=== PATIENT | female | born 1965 | race African-American/Black ===

== ENCOUNTER 2017-11-20 12:28 | Emergency (ER) | payer OTHER ==
[~2017-11-20] VITALS: Ht 172.7 cm; Wt 82.0 kg
[2017-11-20 12:29] VITALS: BP 142/74
[2017-11-20] MEDS ORDERED: ACETAMINOPHEN 325MG TABLET PO ONE (15:30)
== END 2017-11-20 15:45 | disposition left against medical advice (07) ==
LOC: ER 12:28
DX: S90.32XA Contusion of left foot, initial encounter (principal); S90.31XA Contusion of right foot, initial encounter; I10 Essential (primary) hypertension; Z85.528 Personal history of other malignant neoplasm of kidney; V03.10XA Pedestrian on foot injured in collision with car, pick-up truck or van in traffic accident, initial encounter; Y93.89 Activity, other specified; Y92.488 Other paved roadways as the place of occurrence of the external cause
CPT/HCPCS: 73562; 73590; 73630; 99284

== ENCOUNTER 2018-08-31 22:09 | Emergency (ER) | payer MEDICARE, MEDICAID ==
[~2018-08-31] VITALS: Ht 160 cm; Wt 61.0 kg
[2018-09-01 04:28] VITALS: BP 106/69
== END 2018-09-01 04:31 | disposition home or self-care (01) ==
LOC: ER 22:09
DX: R11.2 Nausea with vomiting, unspecified (principal); I10 Essential (primary) hypertension; Z85.528 Personal history of other malignant neoplasm of kidney; Z85.841 Personal history of malignant neoplasm of brain; Z98.890 Other specified postprocedural states
CPT/HCPCS: 99283

== ENCOUNTER 2018-09-06 18:32 | Inpatient (IN) | payer MEDICARE, MEDICAID ==
[~2018-09-06] VITALS: Ht 167.6 cm; Wt 72.6 kg
[2018-09-06] MEDS ORDERED: SODIUM CHLORIDE 0.9% 1,000 ML IV ONE ×2 (19:45→21:30)
[2018-09-06 21:24] LABS: INR 1.1; PROTHROMBIN TIME 10.9 sec (9.6-11.0)
[2018-09-06 21:50] LABS: BASOPHILS % 0.8 % (0.0-2.0); EOSINOPHILS % 1.6 % (0.0-5.0); LYMPHOCYTES % 15.5 % (20.0-50.0); MEAN CORPUSCULAR HEMOGLOBIN 26.1 pg (28.0-32.0); MEAN PLATELET VOLUME 7.2 fl (7.4-10.4); MONOCYTES % 5.2 % (2.0-8.0); NEUTROPHILS % 76.9 % (40.0-76.0); PLATELET 466 x1000/uL (130-400); RED BLOOD CELL COUNT 2.24 mill/uL (4.2-5.4); RED CELL DISTRIBUTION WIDTH 17.9 % (11.6-14.6)
[2018-09-06 21:51] LABS: HEMATOCRIT. 17.5 % (36.0-48.0); HEMOGLOBIN. 5.8 g/dL (12.0-16.0)
[2018-09-06 21:55] LABS: CHLORIDE 104 mEq/L (98-107)
[2018-09-06] MEDS ORDERED: HYDROCODONE/ACETAMINOPHEN 5/325MG TABLET PO ONE (22:15)
[2018-09-06] MEDS ORDERED: ONDANSETRON HCL 4MG/2ML INJ IV PRN (22:30)
[2018-09-06] MEDS ORDERED: ACETAMINOPHEN 325MG TABLET PO PRN (22:30)
[2018-09-06] MEDS ORDERED: CLONIDINE 0.1MG TABLET PO PRN (22:30)
[2018-09-06 22:50] LABS: CLARITY URINE CLOUDY (CLEAR); COLOR URINE YELLOW (YELLOW); KETONES URINE NEGATIVE (NEGATIVE); LEUKOCYTE ESTERASE URINE 3+ (NEGATIVE); NITRITE URINE NEGATIVE (NEGATIVE); OCCULT BLOOD URINE 3+ (NEGATIVE); PROTEIN URINE TRACE (NEGATIVE); SPECIFIC GRAVITY URINE 1.014 (1.005-1.030)
[2018-09-06] MEDS ORDERED: HYDROMORPHONE HCL/PF 2MG/ML CPJ IV PRN (23:45)
[2018-09-07] VITALS (7 sets, daily range): BP systolic 92–119; BP diastolic 47–74
[2018-09-07] MEDS: SODIUM CHLORIDE 0.9% 1,000 ML IV SCH ×2 (02:00→13:43)
[2018-09-07 07:30] LABS: BASOPHILS % 0.5 % (0.0-2.0); EOSINOPHILS % 1.5 % (0.0-5.0); HEMATOCRIT. 23.4 % (36.0-48.0); HEMOGLOBIN. 7.6 g/dL (12.0-16.0); LYMPHOCYTES % 17.5 % (20.0-50.0); MEAN CORPUSCULAR HEMOGLOBIN 26.5 pg (28.0-32.0); MEAN CORPUSCULAR VOLUME 81.4 fL (81.0-99.0); MEAN PLATELET VOLUME 7.5 fl (7.4-10.4); MONOCYTES % 6.9 % (2.0-8.0); NEUTROPHILS % 73.6 % (40.0-76.0); PLATELET 413 x1000/uL (130-400); RED BLOOD CELL COUNT 2.88 mill/uL (4.2-5.4); RED CELL DISTRIBUTION WIDTH 16.4 % (11.6-14.6)
[2018-09-07 07:48] LABS: CHLORIDE 110 mEq/L (98-107)
[2018-09-07] MEDS: INSULIN LISPRO 100 UNITS/ML SUBCUT SCH ×4 (07:50→21:00)
[2018-09-07] MEDS: BLOOD SUGAR DIAGNOSTIC STRIP TEST SCH ×4 (07:54→21:39)
[2018-09-07] MEDS: DEXTROSE 50% WATER 50ML SYRINGE IV PRN ×3 (07:54→21:39)
[2018-09-07] MEDS: FAMOTIDINE 20MG/2ML VIAL IV SCH ×2 (13:39→21:07)
[2018-09-07] MEDS: LEVOFLOXACIN 500MG PREMIX 100 ML IV SCH (13:40)
[2018-09-07] MEDS: HYDROCORTISONE ACETATE 25MG SUPP PR SCH ×2 (14:00→23:36)
[2018-09-07] MEDS ORDERED: NA PHOS,M-B/NA PHOS,DI-BA ENEMA 118ML PR SCH (14:30)
[2018-09-07] MEDS ORDERED: LORAZEPAM 2MG/ML CPJ IV NR (15:45)
[2018-09-07] MEDS ORDERED: PHENYTOIN SODIUM 1,000 MG in SODIUM CHLORIDE 0.9% 100 ML IV SCH (16:00)
[2018-09-07] MEDS ORDERED: NA PHOS,M-B/NA PHOS,DI-BA ENEMA 118ML PR NR (17:31)
[2018-09-07] MEDS ORDERED: MINERAL OIL ENEMA 133ML PR SCH (18:00)
[2018-09-07 19:43] LABS: HEMATOCRIT 27.5 % (36.0-48.0); HEMOGLOBIN 8.3 g/dL (12.0-16.0)
[2018-09-07] MEDS: LEVETIRACETAM 500 MG in SODIUM CHLORIDE 0.9% 100 ML IV SCH (21:07)
[2018-09-08] VITALS (18 sets, daily range): BP systolic 84–115; BP diastolic 30–89
[2018-09-08 06:28] LABS: BASOPHILS % 0.7 % (0.0-2.0); EOSINOPHILS % 1.5 % (0.0-5.0); HEMATOCRIT. 25.1 % (36.0-48.0); LYMPHOCYTES % 17.8 % (20.0-50.0); MEAN CORPUSCULAR HEMOGLOBIN 26.5 pg (28.0-32.0); MEAN CORPUSCULAR VOLUME 83.3 fL (81.0-99.0); MEAN PLATELET VOLUME 7.2 fl (7.4-10.4); MONOCYTES % 6.2 % (2.0-8.0); NEUTROPHILS % 73.8 % (40.0-76.0); PLATELET 436 x1000/uL (130-400); RED BLOOD CELL COUNT 3.01 mill/uL (4.2-5.4); RED CELL DISTRIBUTION WIDTH 16.9 % (11.6-14.6)
[2018-09-08 06:39] LABS: PROTHROMBIN TIME 10.7 sec (9.6-11.0)
[2018-09-08 06:43] LABS: CHLORIDE 112 mEq/L (98-107)
[2018-09-08] MEDS: INSULIN LISPRO 100 UNITS/ML SUBCUT SCH ×4 (07:02→21:00)
[2018-09-08] MEDS: BLOOD SUGAR DIAGNOSTIC STRIP TEST SCH ×4 (07:02→21:00)
[2018-09-08] MEDS: LORAZEPAM 2MG/ML CPJ IV PRN ×2 (08:16→22:01)
[2018-09-08] MEDS: LEVETIRACETAM 500 MG in SODIUM CHLORIDE 0.9% 100 ML IV SCH ×2 (08:17→21:26)
[2018-09-08] MEDS: SODIUM CHLORIDE 0.9% 1,000 ML IV SCH (08:18)
[2018-09-08] MEDS: FAMOTIDINE 20MG/2ML VIAL IV SCH ×2 (08:30→21:26)
[2018-09-08] MEDS: HYDROCORTISONE ACETATE 25MG SUPP PR SCH ×3 (08:30→21:26)
[2018-09-08] MEDS ORDERED: SODIUM CHLORIDE 0.9% 250 ML IV NR (12:30)
[2018-09-08] MEDS: LEVOFLOXACIN 500MG PREMIX 100 ML IV SCH (13:08)
[2018-09-08] MEDS ORDERED: PHENYTOIN 100 MG/4 ML UDC PO SCH (21:00)
[2018-09-09] VITALS (11 sets, daily range): BP systolic 86–128; BP diastolic 46–58
[2018-09-09] MEDS: SODIUM CHLORIDE 0.9% 1,000 ML IV SCH ×2 (02:42→08:58)
[2018-09-09] MEDS: LORAZEPAM 2MG/ML CPJ IV PRN (04:45)
[2018-09-09] MEDS: HYDROCODONE/ACETAMINOPHEN 5/325MG TABLET PO PRN ×2 (04:55→15:44)
[2018-09-09] MEDS: BLOOD SUGAR DIAGNOSTIC STRIP TEST SCH ×3 (07:30→18:26)
[2018-09-09] MEDS: INSULIN LISPRO 100 UNITS/ML SUBCUT SCH ×3 (08:00→18:00)
[2018-09-09] MEDS: LEVETIRACETAM 500 MG in SODIUM CHLORIDE 0.9% 100 ML IV SCH (08:57)
[2018-09-09] MEDS: FAMOTIDINE 20MG/2ML VIAL IV SCH (08:57)
[2018-09-09] MEDS: HYDROCORTISONE ACETATE 25MG SUPP PR SCH (08:58)
[2018-09-09] MEDS: LEVOFLOXACIN 500MG PREMIX 100 ML IV SCH (12:25)
== END 2018-09-09 19:07 | disposition home health service (06) | DRG 871 ==
LOC: ER 18:32 → 6WST 22:04 → EDBEDREQSVC 22:13 → EDBEDREQTM 22:13 → EDBEDREQ 22:13 → SUPCPDRO 22:29 → EDBEDREQSVC 22:51 → ENRESERV 23:13 → 6WST 09-07 00:15 → 5EST 09-07 16:24
PROVIDERS: ADMIT Hospitalist; ATTEND Hospitalist
PROC: 30233N1 Transfusion of Nonautologous Red Blood Cells into Peripheral Vein, Percutaneous Approach (ICD-10-PCS; principal; 2018-09-06)
DX: A41.9 Sepsis, unspecified organism (principal); E43 Unspecified severe protein-calorie malnutrition; D62 Acute posthemorrhagic anemia; K56.49 Other impaction of intestine; K92.2 Gastrointestinal hemorrhage, unspecified; N39.0 Urinary tract infection, site not specified; C78.02 Secondary malignant neoplasm of left lung; C78.01 Secondary malignant neoplasm of right lung; D50.9 Iron deficiency anemia, unspecified; E11.649 Type 2 diabetes mellitus with hypoglycemia without coma; F17.200 Nicotine dependence, unspecified, uncomplicated; G40.909 Epilepsy, unspecified, not intractable, without status epilepticus; Z85.528 Personal history of other malignant neoplasm of kidney; Z90.5 Acquired absence of kidney; Z68.25 Body mass index [BMI] 25.0-25.9, adult
CPT/HCPCS: 36415; 71045; 82962; 85014; 85018; 85049; 85384; 86850; 86900; 86920; 93005; 96374; 99285; C1893; J1165; J1170; J1953; J1956; J2060; J3490; J7030; J7040; J7050; P9016

== ENCOUNTER 2018-09-14 08:27 | Inpatient (IN) | payer MEDICARE, MEDICAID ==
[2018-09-14] VITALS (8 sets, daily range): BP systolic 95–111; BP diastolic 40–59
[~2018-09-14] VITALS: Ht 167.6 cm; Wt 64.9 kg
[2018-09-14] MEDS ORDERED: ONDANSETRON HCL 4MG/2ML INJ IV STA (09:11)
[2018-09-14] MEDS ORDERED: SODIUM CHLORIDE 0.9% 1,000 ML IV ONE ×2 (09:11→09:48)
[2018-09-14] MEDS ORDERED: LEVETIRACETAM 1000MG/100ML 100 ML IV ONE (09:15)
[2018-09-14 09:33] LABS: CHLORIDE 106 mEq/L (98-107)
[2018-09-14 09:35] LABS: BASOPHILS % 0.8 % (0.0-2.0); EOSINOPHILS % 1.2 % (0.0-5.0); LYMPHOCYTES % 15.4 % (20.0-50.0); MEAN CORPUSCULAR HEMOGLOBIN 25.8 pg (28.0-32.0); MEAN CORPUSCULAR VOLUME 80.9 fL (81.0-99.0); MEAN PLATELET VOLUME 7.1 fl (7.4-10.4); NEUTROPHILS % 75.6 % (40.0-76.0); PLATELET 346 x1000/uL (130-400); RED BLOOD CELL COUNT 2.21 mill/uL (4.2-5.4); RED CELL DISTRIBUTION WIDTH 17.7 % (11.6-14.6)
[2018-09-14 09:38] LABS: HEMATOCRIT. 17.9 % (36.0-48.0); HEMOGLOBIN. 5.7 g/dL (12.0-16.0)
[2018-09-14 09:46] LABS: INR 1.1; PROTHROMBIN TIME 11.1 sec (9.6-11.0)
[2018-09-14] MEDS ORDERED: PANTOPRAZOLE SODIUM 40 MG/VIAL IV NR (10:00)
[2018-09-14] MEDS ORDERED: ACETAMINOPHEN 650MG SUPP PR PRN (12:45)
[2018-09-14] MEDS: PANTOPRAZOLE 80 MG in SODIUM CHLORIDE 0.9% 100 ML IV SCH (13:03)
[2018-09-14] MEDS ORDERED: LEVETIRACETAM 500MG PREMIX 100 ML IV SCH (14:00)
[2018-09-14 15:20] LABS: TOTAL IRON BINDING CAPACITY 145 ug/dL (250-450)
[2018-09-14 17:40] LABS: CLARITY URINE CLOUDY (CLEAR); COLOR URINE YELLOW (YELLOW); KETONES URINE 1+ (NEGATIVE); LEUKOCYTE ESTERASE URINE 2+ (NEGATIVE); NITRITE URINE NEGATIVE (NEGATIVE); OCCULT BLOOD URINE NEGATIVE (NEGATIVE); PROTEIN URINE NEGATIVE (NEGATIVE); SPECIFIC GRAVITY URINE 1.018 (1.005-1.030)
[2018-09-14] MEDS ORDERED: SORBITOL 70% SOLN 30ML PO NR (18:00)
[2018-09-14] MEDS ORDERED: HYDR-3280 MT (18:11)
[2018-09-14] MEDS ORDERED: KEPP500 PO (18:14)
[2018-09-14] MEDS: DEXT 5%/0.45% NACL KCL 10MEQ/L 1,000 ML IV SCH (18:44)
[2018-09-14] MEDS: MORPHINE SULFATE 2 MG/ML CPJ (NOT FOR IM USE) IV PRN (18:53)
[2018-09-14] MEDS: DOCUSATE SODIUM 250MG CAPSULE PO SCH (18:53)
[2018-09-14 19:17] LABS: HEMOGLOBIN 4.4 g/dL (12.0-16.0)
[2018-09-15] VITALS (13 sets, daily range): BP systolic 93–107; BP diastolic 45–60
[2018-09-15] MEDS: PANTOPRAZOLE 80 MG in SODIUM CHLORIDE 0.9% 100 ML IV SCH (00:25)
[2018-09-15] MEDS: DEXT 5%/0.45% NACL KCL 10MEQ/L 1,000 ML IV SCH ×2 (05:15→22:39)
[2018-09-15] MEDS: MORPHINE SULFATE 2 MG/ML CPJ (NOT FOR IM USE) IV PRN ×3 (05:15→22:53)
[2018-09-15 07:38] LABS: BASOPHILS % 0.7 % (0.0-2.0); EOSINOPHILS % 1.2 % (0.0-5.0); HEMATOCRIT. 22.2 % (36.0-48.0); HEMOGLOBIN. 7.4 g/dL (12.0-16.0); LYMPHOCYTES % 12.2 % (20.0-50.0); MEAN CORPUSCULAR HEMOGLOBIN 27.6 pg (28.0-32.0); MEAN CORPUSCULAR VOLUME 83.2 fL (81.0-99.0); MEAN PLATELET VOLUME 7.6 fl (7.4-10.4); NEUTROPHILS % 79.9 % (40.0-76.0); PLATELET 250 x1000/uL (130-400); RED BLOOD CELL COUNT 2.67 mill/uL (4.2-5.4)
[2018-09-15 07:46] LABS: CHLORIDE 110 mEq/L (98-107)
[2018-09-15] MEDS: DOCUSATE SODIUM 250MG CAPSULE PO SCH ×2 (09:00→17:00)
[2018-09-15] MEDS ORDERED: IRON SUCROSE COMPLEX 100 MG/5 ML ML IV SCH (13:15)
[2018-09-15 15:40] LABS: HEMATOCRIT 21.3 % (36.0-48.0); HEMOGLOBIN 7.3 g/dL (12.0-16.0)
[2018-09-16] VITALS (9 sets, daily range): BP systolic 97–144; BP diastolic 53–90
[2018-09-16 06:45] LABS: CHLORIDE 111 mEq/L (98-107)
[2018-09-16 06:47] LABS: EOSINOPHILS % 1.1 % (0.0-5.0); HEMATOCRIT. 24.2 % (36.0-48.0); HEMOGLOBIN. 7.9 g/dL (12.0-16.0); LYMPHOCYTES % 13.2 % (20.0-50.0); MEAN CORPUSCULAR HEMOGLOBIN 27.4 pg (28.0-32.0); MEAN CORPUSCULAR VOLUME 83.4 fL (81.0-99.0); MEAN PLATELET VOLUME 7.5 fl (7.4-10.4); MONOCYTES % 6.6 % (2.0-8.0); NEUTROPHILS % 78.1 % (40.0-76.0); PLATELET 179 x1000/uL (130-400); RED CELL DISTRIBUTION WIDTH 16.8 % (11.6-14.6)
[2018-09-16] MEDS: ONDANSETRON HCL 4MG/2ML INJ IV PRN ×2 (08:43→18:48)
[2018-09-16] MEDS: MORPHINE SULFATE 2 MG/ML CPJ (NOT FOR IM USE) IV PRN ×2 (09:13→18:54)
[2018-09-16] MEDS: IRON SUCROSE COMPLEX 100 MG/5 ML ML IV SCH (09:13)
[2018-09-16] MEDS: DOCUSATE SODIUM 250MG CAPSULE PO SCH ×2 (12:37→17:00)
[2018-09-16] MEDS: DEXT 5%/0.45% NACL KCL 10MEQ/L 1,000 ML IV SCH (17:16)
[2018-09-17] VITALS: BP 113/66
[2018-09-17] MEDS: DEXT 5%/0.45% NACL KCL 10MEQ/L 1,000 ML IV SCH ×3 (00:40→23:45)
[2018-09-17 04:00] VITALS: BP 100/56
[2018-09-17] MEDS: MORPHINE SULFATE 2 MG/ML CPJ (NOT FOR IM USE) IV PRN ×3 (05:21→21:14)
[2018-09-17 06:30] LABS: BASOPHILS % 0.8 % (0.0-2.0); EOSINOPHILS % 1.1 % (0.0-5.0); HEMATOCRIT. 22.6 % (36.0-48.0); HEMOGLOBIN. 7.6 g/dL (12.0-16.0); LYMPHOCYTES % 15.3 % (20.0-50.0); MEAN CORPUSCULAR VOLUME 83.1 fL (81.0-99.0); MEAN PLATELET VOLUME 7.5 fl (7.4-10.4); MONOCYTES % 6.2 % (2.0-8.0); NEUTROPHILS % 76.6 % (40.0-76.0); PLATELET 193 x1000/uL (130-400); RED BLOOD CELL COUNT 2.71 mill/uL (4.2-5.4); RED CELL DISTRIBUTION WIDTH 17.1 % (11.6-14.6)
[2018-09-17 07:24] LABS: CHLORIDE 111 mEq/L (98-107)
[2018-09-17 08:00] VITALS: BP 105/53
[2018-09-17] MEDS: IRON SUCROSE COMPLEX 100 MG/5 ML ML IV SCH (08:18)
[2018-09-17] MEDS: DOCUSATE SODIUM 250MG CAPSULE PO SCH ×2 (08:18→16:44)
[2018-09-17] MEDS ORDERED: MAGNESIUM 2 G PREMIX 50 ML IV SCH (11:00)
[2018-09-17] MEDS: LEVETIRACETAM 500MG TABLET PO SCH ×2 (11:08→21:13)
[2018-09-17 12:00] VITALS: BP 99/49
[2018-09-17 16:00] VITALS: BP 101/51
[2018-09-17 20:00] VITALS: BP 110/60
[2018-09-17] MEDS: ONDANSETRON HCL 4MG/2ML INJ IV PRN (21:13)
[2018-09-18] VITALS: BP 115/71
[2018-09-18 04:00] VITALS: BP 117/68
[2018-09-18 08:00] VITALS: BP 100/52
[2018-09-18 08:46] VITALS: BP 100/52
== END 2018-09-18 09:20 | disposition home or self-care (01) | DRG 100 ==
LOC: ER 08:27 → 8WST 11:20 → ENRESERV 15:36
PROVIDERS: ADMIT Hospitalist; ATTEND Hospitalist
PROC: 02HV33Z Insertion of Infusion Device into Superior Vena Cava, Percutaneous Approach (ICD-10-PCS; principal; 2018-09-14)
PROC: B548ZZA Ultrasonography of Superior Vena Cava, Guidance (ICD-10-PCS; 2018-09-14)
PROC: 30233N1 Transfusion of Nonautologous Red Blood Cells into Peripheral Vein, Percutaneous Approach (ICD-10-PCS; 2018-09-14)
DX: G40.909 Epilepsy, unspecified, not intractable, without status epilepticus (principal); E43 Unspecified severe protein-calorie malnutrition; C79.31 Secondary malignant neoplasm of brain; D62 Acute posthemorrhagic anemia; K92.2 Gastrointestinal hemorrhage, unspecified; C78.02 Secondary malignant neoplasm of left lung; C78.01 Secondary malignant neoplasm of right lung; E11.22 Type 2 diabetes mellitus with diabetic chronic kidney disease; I12.9 Hypertensive chronic kidney disease with stage 1 through stage 4 chronic kidney disease, or unspecified chronic kidney disease; K59.09 Other constipation; N18.9 Chronic kidney disease, unspecified; D50.9 Iron deficiency anemia, unspecified; Z72.0 Tobacco use; Z91.14 Patient's other noncompliance with medication regimen; Z79.899 Other long term (current) drug therapy; Z85.528 Personal history of other malignant neoplasm of kidney; Z68.23 Body mass index [BMI] 23.0-23.9, adult
CPT/HCPCS: 36415; 36569; 36573; 71045; 74018; 80048; 82270; 82728; 82962; 83540; 83550; 83735; 84134; 85014; 85018; 86850; 86900; 86920; 93970; 96374; 96375; 99285; C1725; C9113; J1953; J2270; J2405; J3475; J7030; J7040; J7050; P9016